=== PATIENT | male | born 1980 | race Hispanic/Latino ===

== ENCOUNTER 2021-10-22 20:48 | Emergency (ER) | payer SELFPAY ==
[2021-10-22] MEDS ORDERED: Dexamethasone 10 MG/ML VIAL ONE (23:05)
== END 2021-10-22 23:12 | disposition home or self-care (01) ==
LOC: ERS 20:48
DX: J02.9 Acute pharyngitis, unspecified (principal)
CPT/HCPCS: 99282; J1100